=== PATIENT | male | born 1945 | race Caucasian/White ===

== ENCOUNTER 2018-08-21 15:09 | Emergency (ER) | payer OTHER, MEDICARE ==
[~2018-08-21] VITALS: Ht 175.3 cm; Wt 102.1 kg
[2018-08-21] MEDS ORDERED: NORCO 5-325 TA1 EACH PO (17:09)
[2018-08-21] MEDS ORDERED: KEFLEX500 M1 PO (17:09)
[2018-08-21 18:33] VITALS: BP 162/90
== END 2018-08-21 18:35 | disposition home or self-care (01) ==
LOC: ER 15:09
DX: S61.211A Laceration without foreign body of left index finger without damage to nail, initial encounter (principal); S61.213A Laceration without foreign body of left middle finger without damage to nail, initial encounter; E78.5 Hyperlipidemia, unspecified; W31.2XXA Contact with powered woodworking and forming machines, initial encounter; Y92.89 Other specified places as the place of occurrence of the external cause; Y93.89 Activity, other specified; Y99.8 Other external cause status

== ENCOUNTER 2018-08-24 08:41 | Emergency (ER) | payer OTHER, MEDICARE ==
[~2018-08-24] VITALS: Ht 175.3 cm; Wt 102.1 kg
[~2018-08-24 08:41] MED LIST: KEFLEX500 M1 PO; NORCO 5-325 TA1 EACH PO
[2018-08-24] MEDS ORDERED: LAMICTAL XR200 MG PO (08:48)
[2018-08-24] MEDS ORDERED: PROZAC20 MG PO (08:48)
[2018-08-24] MEDS ORDERED: BENTYL 10 MG CA10 M1 PO (08:49)
[2018-08-24] MEDS ORDERED: TRAZODONE HCL50 MG PO (08:49)
[2018-08-24] MEDS ORDERED: ALPRAZOLAM 0.50.5 MG PO (08:50)
[2018-08-24] MEDS ORDERED: LIPITOR 20 MG T20 M1 PO (08:50)
[2018-08-24] MEDS ORDERED: REQUIP 1 MG TABL1 M1 PO (08:51)
[2018-08-24 10:32] VITALS: BP 135/75
== END 2018-08-24 10:00 | disposition home or self-care (01) ==
LOC: ER 08:41
DX: S61.211D Laceration without foreign body of left index finger without damage to nail, subsequent encounter (principal); S61.213D Laceration without foreign body of left middle finger without damage to nail, subsequent encounter; W26.8XXD Contact with other sharp object(s), not elsewhere classified, subsequent encounter; E78.5 Hyperlipidemia, unspecified; K75.9 Inflammatory liver disease, unspecified

== ENCOUNTER 2020-04-04 16:27 | Emergency (ER) | payer OTHER, MEDICARE ==
[~2020-04-04] VITALS: Ht 177.8 cm; Wt 102.1 kg
[~2020-04-04 16:27] MED LIST changes: +ALPRAZOLAM 0.50.5 MG PO; +BENTYL 10 MG CA10 M1 PO; +LAMICTAL XR200 MG PO; +LIPITOR 20 MG T20 M1 PO; +PROZAC20 MG PO; +REQUIP 1 MG TABL1 M1 PO; +TRAZODONE HCL50 MG PO
[2020-04-04] MEDS ORDERED: NORCO 5-325 TA1 EAC2 PO (19:26)
[2020-04-04] MEDS ORDERED: LIDOCAINE1 EACH TRANSDERM (19:26)
[2020-04-04] MEDS ORDERED: MOBIC15 MG PO (19:26)
[2020-04-04 20:15] VITALS: BP 143/76
== END 2020-04-04 20:15 | disposition home or self-care (01) ==
LOC: ER 16:27
DX: S82.831A Other fracture of upper and lower end of right fibula, initial encounter for closed fracture (principal); S00.83XA Contusion of other part of head, initial encounter; S20.212A Contusion of left front wall of thorax, initial encounter; E78.5 Hyperlipidemia, unspecified; Z79.899 Other long term (current) drug therapy; W17.2XXA Fall into hole, initial encounter; Y93.01 Activity, walking, marching and hiking; Y92.89 Other specified places as the place of occurrence of the external cause; Y99.9 Unspecified external cause status

== ENCOUNTER 2021-06-22 14:10 | Inpatient (IN) | payer OTHER, MEDICARE ==
[~2021-06-22] VITALS: Ht 175.3 cm; Wt 96.2 kg
[~2021-06-22 14:10] MED LIST changes: -LAMICTAL XR200 MG PO; +LAMOTRIGINE100 MG PO; +LIDOCAINE1 EACH TRANSDERM; +MOBIC15 MG PO; +NORCO 5-325 TA1 EAC2 PO
[2021-06-22 14:23] VITALS: BP 161/86
[2021-06-22 14:45] LABS: ABSOLUTE NEUTROPHILS 3.9 thou/uL (1.4-8.2); BASOPHILS 0.6 % (0.0-2.0); EOSINOPHILS 1.2 % (0.0-3.0); HEMATOCRIT 42.6 % (42.0-52.0); HEMOGLOBIN 14.2 gm/dL (14.0-18.0); LYMPHOCYTES 26.4 % (24.0-44.0); MCH 30.6 pg (26.0-34.0); MCHC 33.4 g/dL (28.0-37.0); MCV 91.5 fL (80.0-100.0); MONOCYTES 8.5 % (1.0-8.0); PLATELET COUNT 357 thou/uL (150-400); POLYS 63.3 % (36.0-66.0); RBC 4.66 mil/uL (4.50-6.00); RDW 12.4 % (10.5-14.5); WBC 6.2 thou/uL (4.0-11.0)
[2021-06-22 14:59] LABS: CALCIUM 8.9 mg/dL (8.5-10.1); CREATININE 0.9 mg/dL (0.7-1.3); POTASSIUM 3.7 mmol/L (3.5-5.1)
[2021-06-22 15:05] LABS: ALBUMIN 3.6 g/dL (3.4-5.0); TOTAL BILIRUBIN 0.5 mg/dL (0.2-1.0); TOTAL PROTEIN 6.8 g/dL (6.4-8.2)
--- NOTE | 2021-06-22 16:10 | EKG ---
[address] [address] ELECTROCARDIOGRAM REPORT Name: TAWNY MEJIA [id number] Admission: 06/22/21 Attend Phys: Discharge: Date of : 49 Report #: [id number] [facility] ED Test Date: 2021-06-22 Test Time: 14:28:30 Pat Name: TAWNY MEJIA Department: Room: Gender: M Aligning Inspector: KENNY : 1945 Requested By: Carlita Ash Order Number: [id number] MD: Franki Chairez Measurements Intervals [place] Rate: 64 P: 16 CT: 140 QRS: 47 QRSD: 81 T: 66 QT: 413 QTc: 426 Interpretive Statements Sinus rhythm Abnormal R-wave progression, early transition No previous ECG available for comparison Electronically Signed On 06-22-2021 16:10:19 CDT by Franki Chairez [email or web address] <ELECTRONICALLY SIGNED> By: Franki Chairez MD, [facility] 06/22/21 1610 1428 1428 Franki Chairez MD, FACC /EPI
[2021-06-22 17:49] LABS: URINE BILIRUBIN NEGATIVE (Negative); URINE BLOOD NEGATIVE (Negative); URINE CLARITY CLEAR; URINE COLOR YELLOW; URINE GLUCOSE-RANDOM* NEGATIVE (Negative); URINE KETONES NEGATIVE (Negative); URINE LEUKOCYTES-REFLEX NEGATIVE (Negative); URINE NITRITE-REFLEX NEGATIVE (Negative); URINE PROTEIN (DIPSTICK) NEGATIVE (Negative)
[2021-06-22] MEDS ORDERED: TYLENOL325 M1 PO (17:52)
[2021-06-22] MEDS ORDERED: LAMOTRIGINE100 MG PO (17:53)
[2021-06-22] MEDS ORDERED: XANAX1 MG PO (17:53)
[2021-06-22] MEDS ORDERED: OMEPRAZOLE 20 M20 M1 PO (17:54)
[2021-06-22] MEDS ORDERED: FLUOXETINE HCL60 MG PO (17:54)
[2021-06-22] MEDS ORDERED: ACID REDUCER20 MG PO (17:54)
[2021-06-22] MEDS ORDERED: FISH OIL 1,0001 EAC9 PO (17:54)
[2021-06-22] MEDS ORDERED: LEVSIN0.125 MG PO (17:55)
[2021-06-22 17:56] VITALS: BP 140/53
--- NOTE | 2021-06-22 18:26 | NUR ---
RN ATTEMPTED TO CALL REPORT TO CCU
[2021-06-22 18:42] VITALS: BP 140/80
[2021-06-22 19:09] VITALS: BP 150/86
[2021-06-22 19:09] LABS: FOLIC ACID 19.7 ng/mL (8.6-58.9)
[2021-06-22 23:21] VITALS: BP 123/61
[2021-06-23 02:35] LABS: ABSOLUTE NEUTROPHILS 3.7 thou/uL (1.4-8.2); BASOPHILS 0.2 % (0.0-2.0); EOSINOPHILS 1.3 % (0.0-3.0); HEMATOCRIT 37.3 % (42.0-52.0); HEMOGLOBIN 12.6 gm/dL (14.0-18.0); LYMPHOCYTES 30.8 % (24.0-44.0); MCHC 33.9 g/dL (28.0-37.0); MCV 91.6 fL (80.0-100.0); MONOCYTES 9.7 % (1.0-8.0); PLATELET COUNT 309 thou/uL (150-400); RBC 4.07 mil/uL (4.50-6.00); RDW 12.3 % (10.5-14.5); WBC 6.5 thou/uL (4.0-11.0)
[2021-06-23 02:49] LABS: CALCIUM 8.2 mg/dL (8.5-10.1); CREATININE 0.9 mg/dL (0.7-1.3); MAGNESIUM 1.9 mg/dL (1.8-2.4); POTASSIUM 3.6 mmol/L (3.5-5.1)
[2021-06-23 02:55] LABS: CHOLESTEROL 145 mg/dL (<200); HDL CHOLESTEROL 52 mg/dL (>40); LDL CHOLESTEROL 80 mg/dL (<100); TC:HDL 2.8 Ratio (Not establshd); TRIGLYCERIDE 66 mg/dL (<150); VLDL 13 mg/dL (<40)
[2021-06-23 03:01] LABS: SERUM ASSESSMENT Clear
[2021-06-23 04:07] LABS: GLYCOHEMOGLOBIN (HGB A1C) 5.6 % (4.8-5.6)
[2021-06-23 05:21] VITALS: BP 139/68
--- NOTE | 2021-06-23 05:50 | NUR ---
PT ARRIVED TO THE UNIT AT APPROXIMATELY 1900 FROM ED. ACCOMPAINIED BY STAFF. PT REMAIN ALERT AND ORIENT TIMES FOUR. DENIES PAIN AND NAUSEA. DID C/O HAVING A HEADACHE LATER IN THE MORNING. PRN TYLENOL GIVEN WITH GOOD RESULTS. VSS, AFEBRILE. SR PER MONITOR. , ANAYA AT THE BEDSIDE AND ORDERED A ROUTINE MRI OF HEAD R/T DIZZINESS. PT IS A RETIRED RN FROM [employer]. DENIES VERTIGO. UP WITH STANDBY ASSIST TO TOILET. UP WITH GB AND WALKER. GAIT SLOW AND STEADY PER TECH. PT/OT CONSULT PLACED. SLOW PROGRESS TOWARDS DC GOALS, WILL CONTINUE TO MONITOR.
[2021-06-23 07:00] VITALS: BP 118/70
[2021-06-23 16:30] VITALS: BP 137/67
[2021-06-23 19:05] VITALS: BP 130/77
--- NOTE | 2021-06-24 03:41 | NUR ---
RECEIVED PATIENT AT 1900H.PATIEN TIS ALERT AND ORIENTED X4.ON ROOM AIR BREATHING SPONTANEOUSLY.NOT IN PAIN OR DISTRESS.PATIENT REQUESTED TO TAKE THE PRN TRAZADONE TOGETHER ALBIN ROWE ACCORDING TO HIM HE HAS BEEN TAKING IT AT HOME TOGETHER.PATIENT WAS ABLE TO SLEEP.ALL NEEDS ATTENDED.
[2021-06-24 05:14] VITALS: BP 127/72
[2021-06-24 11:00] VITALS: BP 127/73
[2021-06-24] MEDS ORDERED: MECLIZINE HCL25 MG PO (13:15)
[2021-06-24 13:48] VITALS: BP 127/73
--- NOTE | 2021-06-24 14:50 | NUR ---
PATIENT DISCHARGED TO HOME. PATIENT EDUCATION AND TEACHING COMPLETED, NO QUESTIONS OR CONERNS FROM PT. IV AND TELE REMOVED. TAKEN IN WHEELCHAIR BY STAFF TO WAITING VEHICLE WITH FAMILY.
--- NOTE | 2021-07-04 10:09 | HC ---
[facility] [place] [address] CONSULTATION Name: TAWNY MEJIA Room #: 211-P [facility] IN M.R.#: [id number] Admission: 06/22/21 Attend Phys: Cy Chinchilla MD Discharge: 06/24/21 Date of : 49 Report #: [id number] THIS REPORT FOR: cc: Charlotte Rodriguez MD, Tiffany MD Khosla,Peng Lincoln MD ~ DATE OF SERVICE: 06/22/2021 HISTORY OF PRESENT ILLNESS: This is a 75-year-old male patient who was evaluated by me for any neurological etiology for dizziness. Apparently, this patient says that about 5-6 years ago, he had an episode of dizziness, which lasted a few weeks. They did the workup at that time and subsequently put him on vestibular exercises and it took a long time, but subsequently resolved. Since then, whenever he turns at night, he becomes severely dizzy. He came up with another severe episode of dizziness. I was called from the emergency room and they had indicated that the patient has presented with severe dizziness, which was not resolving because of the medications. The patient has nystagmus, but that is the only history that was available to me and I had recommended if BUN and creatinine was normal, then proceed with a CT angiogram of the head and neck. That was done and that was unremarkable. REVIEW OF SYSTEMS: Indicates this patient has a pretty significant psychiatric problems including bipolar. He says he does not go to a psychiatrist, but he is on multiple medications, which typically psychiatric prescribes. He has gone to a neurologist, Dr. Lam at [facility] and followed up with him. He follows up with an ENT physician and he follows up with his family doctor. He is on numerous medications including trazodone, lamotrigine, ropinirole, alprazolam, etc. A 14-point review of system was otherwise noncontributory. PAST MEDICAL HISTORY: Positive for similar spell a few years ago. FAMILY HISTORY: Noncontributory. SOCIAL HISTORY: He said he does not smoke or drink any alcohol. PHYSICAL EXAMINATION: VITAL SIGNS: His blood pressure is 150 86, respirations 18, pulse is 63, temperature is 97.8. GENERAL: The patient's examination indicates he is alert, responsive, able to follow simple and complex command. His speech looks unremarkable. His cranial nerve examination does indicate nystagmus on looking towards the left. He does not change direction. NEUROMUSCULAR: Examinations appears noncontributory. [place] [address] CONSULTATION Name: TAWNY MEJIA Room #: 211-P [facility] IN M.R.#: [id number] Admission: 06/22/21 Attend Phys: Cy Chinchilla MD Discharge: 06/24/21 Date of : 49 Report #: [id number] individual. His hearing and vision looks adequate. He has no thyroid mass. There is no carotid bruit. There is no edema. Pulses are palpable. LABORATORY DATA: White count is 6.2. Sodium is normal. IMPRESSION AND PLAN: This patient's dizziness is most likely related to ENT pathology. This is a second episode. I will suggest an ENT consult. Neurological etiology is unlikely. This is especially because CT angiogram is normal and there is no basilar artery problem, which can sometimes cause similar problem. We can repeat the MRI, but otherwise the main management is going to be by ENT. If MRI does show a stroke, that will change things and then the patient will need further neurological workup. All of it was discussed with the patient in detail and more than 50 minutes of time was spent taking care of this patient today and majority was spent reviewing his studies, his records, talking to Emergency Room physician, talking to him and reviewing his records in the computer. Thank you very much for this referral. <ELECTRONICALLY SIGNED> By: Peng Victor MD 07/04/21 1009 [id number] Peng Victor MD /nt
== END 2021-06-24 14:30 | disposition home or self-care (01) | DRG 149 ==
LOC: ER 14:10 → EROBS 17:13 → 2N 18:43
PROVIDERS: Nurse Practitioner; Nurse Practitioner Family; ADMIT Hospitalist; ATTEND Hospitalist
DX: H81.10 Benign paroxysmal vertigo, unspecified ear (principal); E78.5 Hyperlipidemia, unspecified; K58.9 Irritable bowel syndrome, unspecified; F41.9 Anxiety disorder, unspecified; F31.9 Bipolar disorder, unspecified; Z20.822 Contact with and (suspected) exposure to COVID-19; Z79.899 Other long term (current) drug therapy
CPT/HCPCS: 10194

== ENCOUNTER 2021-10-21 17:02 | Emergency (ER) | payer OTHER, MEDICARE ==
[~2021-10-21] VITALS: Ht 177.8 cm; Wt 97.5 kg
[~2021-10-21 17:02] MED LIST changes: +ACID REDUCER20 MG PO; +FISH OIL 1,0001 EAC9 PO; +FLUOXETINE HCL60 MG PO; +LEVSIN0.125 MG PO; +MECLIZINE HCL25 MG PO; +OMEPRAZOLE 20 M20 M1 PO; +TYLENOL325 M1 PO; +XANAX1 MG PO
[2021-10-21 17:21] LABS: ABSOLUTE NEUTROPHILS 2.4 thou/uL (1.4-8.2); BASOPHILS 0.7 % (0.0-2.0); EOSINOPHILS 1.6 % (0.0-3.0); HEMATOCRIT 40.6 % (42.0-52.0); HEMOGLOBIN 13.7 gm/dL (14.0-18.0); LYMPHOCYTES 39.4 % (24.0-44.0); MCH 30.6 pg (26.0-34.0); MCHC 33.8 g/dL (28.0-37.0); MCV 90.7 fL (80.0-100.0); MONOCYTES 11.8 % (1.0-8.0); PLATELET COUNT 320 thou/uL (150-400); POLYS 46.5 % (36.0-66.0); RBC 4.48 mil/uL (4.50-6.00); WBC 5.2 thou/uL (4.0-11.0)
[2021-10-21 17:32] LABS: INR 0.98; PROTIME 10.7 Seconds (10.5-12.1)
[2021-10-21 17:37] LABS: CALCIUM 9.2 mg/dL (8.5-10.1); POTASSIUM 3.8 mmol/L (3.5-5.1)
[2021-10-21 17:42] LABS: ALBUMIN 3.9 g/dL (3.4-5.0); TOTAL BILIRUBIN 0.6 mg/dL (0.2-1.0); TOTAL PROTEIN 6.9 g/dL (6.4-8.2)
[2021-10-21 18:11] VITALS: BP 166/97
== END 2021-10-21 18:24 | disposition short-term general hospital (02) ==
LOC: ER 17:02
PROVIDERS: Emergency Medicine
DX: S68.121A Partial traumatic metacarpophalangeal amputation of left index finger, initial encounter (principal); E78.5 Hyperlipidemia, unspecified; W31.2XXA Contact with powered woodworking and forming machines, initial encounter; Y93.89 Activity, other specified; Y92.89 Other specified places as the place of occurrence of the external cause; Y99.8 Other external cause status